=== PATIENT | male | born 1940 | race Caucasian/White ===

== ENCOUNTER 2023-02-10 01:30 | Emergency (ER) | payer MEDICARE, OTHER ==
[~2023-02-10] VITALS: Ht 177.8 cm; Wt 99.8 kg
[2023-02-10 02:15] LABS: BASOPHILS ABSOLUTE AUTO 0.01 K/mm3 (0.00-0.23); BASOPHILS PERCENT AUTO 0 % (0-2); EOSINOPHILS ABSOLUTE AUTO 0.03 K/mm3 (0.00-0.68); EOSINOPHILS PERCENT AUTO 1 % (0-6); Hematocrit 34.7 % (37.0-53.0); Hemoglobin 11.4 g/dL (13.5-17.5); IMMATURE GRAN ABSOLUTE AUTO 0.05 K/mm3 (0.00-0.10); IMMATURE GRAN PERCENT AUTO 1 % (0-1); LYMPHOCYTES PERCENT AUTO 14 % (21-46); MONOCYTES ABSOLUTE AUTO 0.79 K/mm3 (0.16-1.47); MONOCYTES PERCENT AUTO 19 % (4-13); Mean Corpuscular HGB 31.3 pg (26.0-34.0); Mean Corpuscular HGB Conc 32.9 g/dL (31.5-36.5); Mean Corpuscular Volume 95 fL (80-100); NEUTROPHILS ABSOLUTE AUTO 2.79 K/mm3 (1.96-9.15); NEUTROPHILS PERCENT AUTO 65 % (41-73); Platelet Count 114 K/mm3 (150-400); RDW Coefficient Variation 14.6 % (11.7-14.2); RDW Standard Deviation 50.6 fL (35.1-46.3); Red Blood Cell Count 3.64 M/mm3 (4.30-5.90); White Blood Cell Count 4.27 K/mm3 (4.00-11.30)
[2023-02-10 02:35] LABS: Albumin/Globulin Ratio 0.9 (0.8-1.8); Bilirubin, Total 0.4 mg/dL (0.1-1.0); Bun/Creatinine Ratio 23.6 (12.0-20.0); Calcium, Blood 7.8 mg/dL (8.5-10.1); Creatinine, Blood 1.91 mg/dL (0.60-1.20); Globulin, Blood 3.5 g/dL (2.2-4.0); Magnesium, Blood 2.1 mg/dL (1.6-2.4); Total Protein, Blood 6.5 g/dL (6.4-8.2)
[2023-02-10 05:30] VITALS: BP 116/59
[2023-02-15] MEDS ORDERED: TRELEGY ELLIPT1 EACH IH (23:54)
== END 2023-02-10 09:33 | disposition home or self-care (01) ==
LOC: ER 01:30
PROVIDERS: Student in an Organized Health Care Education/Training Program
DX: U07.1 COVID-19 (principal); E86.0 Dehydration; N17.9 Acute kidney failure, unspecified; S08.0XXA Avulsion of scalp, initial encounter; F03.90 Unspecified dementia, unspecified severity, without behavioral disturbance, psychotic disturbance, mood disturbance, and anxiety; I10 Essential (primary) hypertension; J44.9 Chronic obstructive pulmonary disease, unspecified; W18.30XA Fall on same level, unspecified, initial encounter; Y92.10 Unspecified residential institution as the place of occurrence of the external cause
CPT/HCPCS: 70450; 80053; 83735; 85025; 96360; 99285-25; J7030

== ENCOUNTER 2023-02-15 18:19 | Inpatient (IN) | payer MEDICARE, OTHER ==
[~2023-02-15] VITALS: Ht 177.8 cm; Wt 108.5 kg
[2023-02-15 18:43] LABS: BASOPHILS ABSOLUTE AUTO 0.01 K/mm3 (0.00-0.23); BASOPHILS PERCENT AUTO 0 % (0-2); EOSINOPHILS PERCENT AUTO 0 % (0-6); Hematocrit 37.6 % (37.0-53.0); Hemoglobin 12.2 g/dL (13.5-17.5); IMMATURE GRAN ABSOLUTE AUTO 0.08 K/mm3 (0.00-0.10); IMMATURE GRAN PERCENT AUTO 1 % (0-1); LYMPHOCYTES ABSOLUTE AUTO 0.72 K/mm3 (0.84-5.20); LYMPHOCYTES PERCENT AUTO 11 % (21-46); MONOCYTES ABSOLUTE AUTO 0.57 K/mm3 (0.16-1.47); MONOCYTES PERCENT AUTO 8 % (4-13); Mean Corpuscular HGB 30.2 pg (26.0-34.0); Mean Corpuscular HGB Conc 32.4 g/dL (31.5-36.5); Mean Corpuscular Volume 93 fL (80-100); Mean Platelet Volume 11.3 fL (9.1-12.4); NEUTROPHILS ABSOLUTE AUTO 5.46 K/mm3 (1.96-9.15); NEUTROPHILS PERCENT AUTO 80 % (41-73); Platelet Count 119 K/mm3 (150-400); RDW Coefficient Variation 14.8 % (11.7-14.2); RDW Standard Deviation 51.2 fL (35.1-46.3); Red Blood Cell Count 4.04 M/mm3 (4.30-5.90); White Blood Cell Count 6.84 K/mm3 (4.00-11.30)
[2023-02-15 19:01] LABS: Albumin, Blood 3.2 g/dL (3.4-5.0); Albumin/Globulin Ratio 0.7 (0.8-1.8); Bilirubin, Total 0.5 mg/dL (0.1-1.0); Bun/Creatinine Ratio 25.9 (12.0-20.0); Creatinine, Blood 2.51 mg/dL (0.60-1.20); Globulin, Blood 4.4 g/dL (2.2-4.0); Magnesium, Blood 2.4 mg/dL (1.6-2.4); Phosphorus, Blood 2.8 mg/dL (2.5-4.9); Potassium, Blood 5.7 mmol/L (3.5-5.5); Total Protein, Blood 7.6 g/dL (6.4-8.2)
[2023-02-15 19:10] LABS: D-Dimer, Quantitative 1.78 mg/L FEU (0.00-0.52); International Normalized Ratio 0.98; Prothrombin Time Results 10.3 Sec (9.7-11.5)
[2023-02-15] MEDS ORDERED: TAMSULOSIN HCL0.4 M1 PO (23:53)
[2023-02-15] MEDS ORDERED: Prinivil10 MG PO (23:53)
[2023-02-15] MEDS ORDERED: FLUTICASONE PRO16 GM (23:54)
[2023-02-15] MEDS ORDERED: NAPROXEN500 MG PO (23:54)
[2023-02-15] MEDS ORDERED: TRELEGY ELLIPT1 EACH INH (23:54)
--- NOTE | 2023-02-15 23:57 | NUR ---
PT CHART REVIEWED FOR ADMIT
[2023-02-16 00:42] LABS: Source, Urine Clean Catch
[2023-02-16 00:43] VITALS: BP 113/80
[2023-02-16 00:55] LABS: Bilirubin, Urine Neg (Neg); Blood, Urine Neg (Neg); Glucose Qualitative, Urine Neg (Neg); Ketones, Urine Neg (Neg); Leukocyte Esterase, Urine Neg (Neg); Nitrite, Urine Neg (Neg); Protein, Urine 2+ (Neg); Urobilinogen, Urine NORM (Normal)
[2023-02-16 01:03] LABS: Appearance, Urine Clear (Clear); Color, Urine Yellow (P-Yellow)
[2023-02-16 01:04] LABS: Amorphous Light (0-Heavy); Bacteria Not Seen /hpf; Red Blood Cells, Urine Not Seen /hpf (0-2); Squamous Epithelial Cells Not Seen /hpf (Few); White Blood Cells, Urine Not Seen /hpf (0-5)
[2023-02-16 01:21] LABS: BASOPHILS ABSOLUTE AUTO 0.01 K/mm3 (0.00-0.23); BASOPHILS PERCENT AUTO 0 % (0-2); EOSINOPHILS PERCENT AUTO 0 % (0-6); Hematocrit 35.1 % (37.0-53.0); Hemoglobin 11.6 g/dL (13.5-17.5); IMMATURE GRAN ABSOLUTE AUTO 0.08 K/mm3 (0.00-0.10); IMMATURE GRAN PERCENT AUTO 1 % (0-1); LYMPHOCYTES ABSOLUTE AUTO 0.65 K/mm3 (0.84-5.20); LYMPHOCYTES PERCENT AUTO 8 % (21-46); MONOCYTES ABSOLUTE AUTO 0.66 K/mm3 (0.16-1.47); MONOCYTES PERCENT AUTO 8 % (4-13); Mean Corpuscular HGB 30.2 pg (26.0-34.0); Mean Corpuscular Volume 91 fL (80-100); Mean Platelet Volume 11.2 fL (9.1-12.4); NEUTROPHILS ABSOLUTE AUTO 6.64 K/mm3 (1.96-9.15); NEUTROPHILS PERCENT AUTO 83 % (41-73); Platelet Count 116 K/mm3 (150-400); RDW Coefficient Variation 14.8 % (11.7-14.2); RDW Standard Deviation 49.8 fL (35.1-46.3); Red Blood Cell Count 3.84 M/mm3 (4.30-5.90); White Blood Cell Count 8.04 K/mm3 (4.00-11.30)
--- NOTE | 2023-02-16 01:22 | NUR ---
PATIENT IS A NEW ADMIT FROM THE ED. AXOX 2 WITH CONFUSION. HX DEMENTIA. THREE PERSON TRANSFER FROM [facility] TO BED. SOB WITH EXERTION. DENIES CHEST PAIN AND N/V. TEMP 100.5 ON ADMIT AND ED RN BERKLEY AWARE. SKIN TEAR TO LEFT ELBOW AND MEPILEX APPLIED. BLE BROWN COLORATION AND LEATHER/ALLIGATOR APPEARANCE. EXCORIATED BUTTOCK WITH PHOTO TAKEN AND IN CHART AND MEPILEX APPLIED. ORIENTED TO ROOM AND CALL LIGHT SYSTEM. NS INFUSING AT 75 mL/HR. RESTING IN BED. WCTM.
[2023-02-16 01:39] LABS: Albumin, Blood 2.8 g/dL (3.4-5.0); Albumin/Globulin Ratio 0.7 (0.8-1.8); Bilirubin, Total 0.5 mg/dL (0.1-1.0); Bun/Creatinine Ratio 24.4 (12.0-20.0); Calcium, Blood 7.5 mg/dL (8.5-10.1); Creatinine, Blood 2.7 mg/dL (0.60-1.20); Globulin, Blood 3.8 g/dL (2.2-4.0); Potassium, Blood 5.3 mmol/L (3.5-5.5); Total Protein, Blood 6.6 g/dL (6.4-8.2)
--- NOTE | 2023-02-16 04:17 | NUR ---
SHIFT SUMMARY PATIENT HAD NO ACUTE CHANGES. NS INFUSING AT 75 mL/HR. ON 2L O2 NC AND RA BASELINE. TEMP DOWN TO 99.0 FROM 101.5. VSS/AFEBRILE. DENIES CHEST PAIN, SOB, AND N/V. FAMILY MEMBER (RN) FROM [facility] REPORTS NEW PATIENT SHAKING FROM POST COVID-19 LAST FEW DAYS. ABLE TO SLEEP MOST OF THE SHIFT. CALL LIGHT IN REACH. BED IN LOWEST POSITION. WILL CONTINUE TO MONITOR UNTIL DAY SHIFT NURSE ASSUMES CARE.
[2023-02-16 05:02] VITALS: BP 125/64
[2023-02-16 07:58] VITALS: BP 110/58
[2023-02-16 10:36] LABS: Source, Urine Clean Catch
[2023-02-16 10:41] LABS: Bilirubin, Urine Neg (Neg); Blood, Urine 3+ (Neg); Glucose Qualitative, Urine Neg (Neg); Ketones, Urine Neg (Neg); Leukocyte Esterase, Urine Neg (Neg); Nitrite, Urine Neg (Neg); Protein, Urine 2+ (Neg); Specific Gravity, Urine 1.015 (1.003-1.022); Urobilinogen, Urine NORM (Normal)
[2023-02-16 10:49] LABS: Appearance, Urine Hazy (Clear); Bacteria Few /hpf; Color, Urine Yellow (P-Yellow); Squamous Epithelial Cells Rare /hpf (Few); White Blood Cells, Urine Not Seen /hpf (0-5)
[2023-02-16 15:12] VITALS: BP 97/54
[2023-02-16 16:00] LABS: BASOPHILS ABSOLUTE AUTO 0.01 K/mm3 (0.00-0.23); BASOPHILS PERCENT AUTO 0 % (0-2); EOSINOPHILS PERCENT AUTO 0 % (0-6); Hematocrit 31.6 % (37.0-53.0); Hemoglobin 10.5 g/dL (13.5-17.5); IMMATURE GRAN ABSOLUTE AUTO 0.11 K/mm3 (0.00-0.10); IMMATURE GRAN PERCENT AUTO 2 % (0-1); LYMPHOCYTES ABSOLUTE AUTO 0.95 K/mm3 (0.84-5.20); LYMPHOCYTES PERCENT AUTO 13 % (21-46); MONOCYTES ABSOLUTE AUTO 0.47 K/mm3 (0.16-1.47); MONOCYTES PERCENT AUTO 6 % (4-13); Mean Corpuscular HGB 30.6 pg (26.0-34.0); Mean Corpuscular HGB Conc 33.2 g/dL (31.5-36.5); Mean Corpuscular Volume 92 fL (80-100); Mean Platelet Volume 11.3 fL (9.1-12.4); NEUTROPHILS ABSOLUTE AUTO 5.94 K/mm3 (1.96-9.15); NEUTROPHILS PERCENT AUTO 79 % (41-73); Platelet Count 121 K/mm3 (150-400); RDW Coefficient Variation 15.1 % (11.7-14.2); Red Blood Cell Count 3.43 M/mm3 (4.30-5.90); White Blood Cell Count 7.48 K/mm3 (4.00-11.30)
[2023-02-16 16:21] LABS: Magnesium, Blood 2.2 mg/dL (1.6-2.4)
[2023-02-16 16:32] LABS: Albumin, Blood 2.5 g/dL (3.4-5.0); Anion Gap 4 mmol/L (6-16); Blood Urea Nitrogen 72 mg/dL (8-24); Bun/Creatinine Ratio 27.8 (12.0-20.0); CO2, Blood 21 mmol/L (21-32); Calcium, Blood 7.4 mg/dL (8.5-10.1); Chloride, Blood 116 mmol/L (98-108); Creatinine, Blood 2.59 mg/dL (0.60-1.20); Glomerular Filtration Rate 24 (60-); Glucose, Blood 153 mg/dL (70-99); Phosphorus, Blood 2.6 mg/dL (2.5-4.9); Potassium, Blood 4.8 mmol/L (3.5-5.5); Sodium, Blood 141 mmol/L (136-145)
[2023-02-16 16:54] VITALS: BP 119/58
--- NOTE | 2023-02-16 18:06 | NUR ---
SHIFT SUMMARY: PATIENT ALERT AND ORIENTED TO SELF, PLACED AND YEAR, BUT COULD NOT RECALL THE SPICIFIC DATE, DAY AND MONTH. PATIENT OPEN HIS EYES WHEN ASKED TO QUESTIONS OR VERBAL STIMULI. OTHERWISE, PATIENT HAS BEEN LETHARGIC AND SLEPT THE MAJORITY OF THIS SHIFT. LUNGS HAS COARSE AND WHEEZY T/O TO AUSCULTATIONS. ON RA c SPO2 RANGES 90-98%. NON PRODUCTIVE COUGH. PER DAUGHTER TROY PATIENT JUST COME OUT FROM ISOLATION FOR COVID POSITIVE 2 DAYS AGO. ALSO, DAUGHTER TROY REPORTS PATIENT HAS MILD TREMORS THAT STARTED YESTERDAY. AT BIGINNING OF SHIFT PATIENT C/O OF DISCOMFORT TO SUPRAPUBIC AREA, VOID ABOUT 40 MLS OF URINE USES URINAL c ASSISTANCE. BLADDER SCAN WERE PERFORMED AND SHOWED 869 MLS OF URINE IN BLADDER. THIS RN SPOKE TO DR. NUNES REGARDING PATIENT ISSUES. RECEIVED ORDER FROM DR. NUNES TO PLACED LANE. [address] PLACED AND IMMEDIATELY DRAINED 1000 MLS ELLEN COLOR URINE. PATIENT HAS ONLY ONE TOOTH, MECH SOFT DIET AND FEEDER. PRESSURE SORE TO BUTTOCKS MIPELEX DRESSING PLACED, REPOSITIONED AND LEGS ELEVATED ON PILLOWS. RECEIVED BEDBATH AND LINEN CHANGED. RECEIVED OT DOSE OF IV LASIX. PATIENT HAD TEMP OF 100.5-100.9. PIV TO R FOREARM INFUSING ABX. BED ALARM ON FOR SAFETY. CALL LIGHT IN REACH. PATIENT EDUCATED ON NON SMOKING POLICY, RISK OF INJURY, AND IGNITION SOURCES WHEN O2 IN USE. PATIENT DENIES SMOKING AND VERBALIZED UNDERSTANDING.
[2023-02-17 05:04] LABS: BASOPHILS ABSOLUTE AUTO 0.02 K/mm3 (0.00-0.23); BASOPHILS PERCENT AUTO 0 % (0-2); EOSINOPHILS PERCENT AUTO 0 % (0-6); Hematocrit 33.3 % (37.0-53.0); Hemoglobin 10.8 g/dL (13.5-17.5); IMMATURE GRAN ABSOLUTE AUTO 0.13 K/mm3 (0.00-0.10); IMMATURE GRAN PERCENT AUTO 2 % (0-1); LYMPHOCYTES ABSOLUTE AUTO 1.48 K/mm3 (0.84-5.20); LYMPHOCYTES PERCENT AUTO 19 % (21-46); MONOCYTES ABSOLUTE AUTO 0.49 K/mm3 (0.16-1.47); MONOCYTES PERCENT AUTO 6 % (4-13); Mean Corpuscular HGB 30.4 pg (26.0-34.0); Mean Corpuscular HGB Conc 32.4 g/dL (31.5-36.5); Mean Corpuscular Volume 94 fL (80-100); Mean Platelet Volume 11.4 fL (9.1-12.4); NEUTROPHILS ABSOLUTE AUTO 5.88 K/mm3 (1.96-9.15); NEUTROPHILS PERCENT AUTO 74 % (41-73); Platelet Count 123 K/mm3 (150-400); RDW Coefficient Variation 15.2 % (11.7-14.2); RDW Standard Deviation 52.5 fL (35.1-46.3); Red Blood Cell Count 3.55 M/mm3 (4.30-5.90)
--- NOTE | 2023-02-17 05:24 | NUR ---
SUMMARY- PT AAOX2 THIS SHIFT TO SELF AND PLACE. PT SLEPT THE MAJORITY OF THE SHIFT AND WAS QUITE LETHARGIC ALTHOUGH WOULD WAKE WHEN SPOKEN TO. RT ATTEMPTED A CPAP LAST NIGHT FOR SLEEP, BUT PT COULD NOT REMOVE THE CPAP IN CASE OF AN EMERGENCY, SO CPAP WAS REMOVED. RT PLACED PT ON NC. PT WAS SLEEPING WITH MOUTH OPEN MOST OF THE NIGHT AND OXYGEN SATURATION WAS DROPPING TO THE MID 80'S, SO RT INCREASED OXYGEN TO 6 L NC TO MAINTAIN O2 SATS. ALLEVYN DRESSING CHANGED ON PT'S COCCYX THIS SHIFT. PT IS A X2 PERSON BRIEF CHANGE AND A Q [address] CATHETER IN PLACE AND PATENT.
[2023-02-17 05:44] LABS: Albumin, Blood 2.4 g/dL (3.4-5.0); Anion Gap 6 mmol/L (6-16); Blood Urea Nitrogen 65 mg/dL (8-24); Bun/Creatinine Ratio 26.9 (12.0-20.0); CO2, Blood 21 mmol/L (21-32); Calcium, Blood 7.6 mg/dL (8.5-10.1); Chloride, Blood 118 mmol/L (98-108); Creatinine, Blood 2.42 mg/dL (0.60-1.20); Glomerular Filtration Rate 26 (60-); Glucose, Blood 105 mg/dL (70-99); Magnesium, Blood 2.1 mg/dL (1.6-2.4); Phosphorus, Blood 3.5 mg/dL (2.5-4.9); Potassium, Blood 4.8 mmol/L (3.5-5.5); Sodium, Blood 145 mmol/L (136-145)
[2023-02-17 05:47] VITALS: BP 106/68
[2023-02-17 07:57] VITALS: BP 119/59
[2023-02-17 11:15] VITALS: BP 138/109
[2023-02-17 15:26] VITALS: BP 118/57
--- NOTE | 2023-02-17 16:47 | NUR ---
SHIFT SUMMARY: PATIENT IS AWAKE, ALERT AND ORIENTED TO SELF, PLACE AND YEAR. DENIES CP/PRESSURE, N/V, SOB AND GENERALIZED PAIN. AT BEGINNING OF SHIFT PATIENT WAS ON 6L OF O2 VIA NC c SPO2 OF 100%. OXYGENATION WAS TITRATED DOWN AND MONITORED PATIENT OXYGENATION WAS IN THE HIGH 90'S. PATIENT WAS PLACED ON RA AT AROUND 1130 c SPO2 96-98%. LUNGS STILL COARSE T/O TO AUSCULTATION. PATIENT WORK c PT MOBILITY TODAY AND TRANSFERRED TO CHAIR. PT RECOMMENDED TO [facility]. PATIENT TOLERATED SITTING UP IN THE RECLINER CHAIR FOR ABOUT 5 HRS. PATIENT REQUIRED 2 ASSIST c FWW AND GAITBELT TO BACK IN BED. VISIBLE TREMORS TO BUE'S, EATING AND DRINKING WELL WITHOUT ANY ASSISTANCE. EDEMA TO BLE'S AND FEET. RECEIVED OT DOSE OF [address] PATENT DRAINING YELLOW URINE TO GRAVITY c 1000 MLS TOTAL URINE OUTPUT THIS SHIFT. RECEIVED SCHEDULED MEDS PER EMAR. REPOSITIONED. MIPELEX DRESSING CHANGED TO COCCYX. VITAL SIGNS REVIEWED. BED ALARM ON FOR SAFETY. PIV TO R FOREARM SALINE LOCKED. CALL LIGHT IN REACH. PATIENT EDUCATED ON NON SMOKING POLICY, RISK OF INJURY, AND IGNITION SOURCES WHEN O2 IN USE. PATIENT DENIES SMOKING AND VERBALIZED UNDERSTANDING.
[2023-02-17 20:24] VITALS: BP 120/64
[2023-02-18] VITALS (7 sets, daily range): BP systolic 93–130; BP diastolic 46–65
--- NOTE | 2023-02-18 05:36 | NUR ---
SUMMARY- NO ACUTE EVENTS THIS SHIFT. PT IS MORE AWAKE COMPARED TO YESTERDAY.PT AAOX2 TO SELF AND PLACE, BUT DID KNOW THE YEAR. PT IS A Q2 TURN X2 PERSON ASSIST IN BED. NO COMPLAINTS OF PAIN.
--- NOTE | 2023-02-18 11:02 | NUR ---
PATIENT HAS OT DOSE OF PO 20 MG LASIX TO BE GIVEN D/T EDEMA TO BLE'S. THIS RN CHECK PATIENT VITALS; BP 94/49 c THE MAP OF 62, HR [address] NUNES TO REPORTS THIS ISSUE. RECEIVED ORDER FROM DR. NUNES TO HOLD LASIX.
--- NOTE | 2023-02-18 16:56 | NUR ---
SHIFT SUMMARY: PATIENT IS AWAKE, ALERT AND ORIENTED TO SELF, PLACE AND YEAR. DENIES CP/PRESSURE, SOB, N/V AND GENERALIZED PAIN. LUNGS STILL COARSE AND WHEEZY T/O TO AUSCULTAION. RA c SPO2 RANGES 92-95%. BP SOFT BUT STABLE, DR. NUNES IS AWARE OF THIS ISSUES. EDEMA TO BLE'S-ELEVATED ON PILLOWS, MIPELEX DRESSING CHANGED TO BUTTOCKS. LANE PATENT DRAINING YELLOW URINE TO GRAVITY c 500 MLS TOTAL URINE OUTPUT THIS SHIFT. PATIENT WAS OOB TODAY c 2 MAX ASSIST, FWW AND GAITBELT STAND AND PIVOT TO RECLINER CHAIR AND STAYED IN THE CHAIR FOR ABOUT 5 HOURS, TOLERATED WELL. RECEIVED SCHEDULED MEDS PER EMAR. BED ALARM ON FOR SAFETY. CALL LIGHT IN REACH. PATIENT EDUCATED ON NON SMOKING POLICY, RISK OF INJURY AND IGNITION SOURCES WHEN O2 IN USE. PATIENT DENIES SMOKING AND VERBALIZED UNDERSTANDING.
[2023-02-19 05:06] VITALS: BP 116/61
--- NOTE | 2023-02-19 05:39 | NUR ---
SUMMARY: PT A/O TO SELF, SURROUNDINGS AND YEAR BUT CONFUSED TO DATE AND SITUATION SPECIFICS. HE HAS DEMENTIA AND LIVES AT [facility] BUT IS ABLE TO SPECIFY NEEDS AND COOPERATE W/CARE. PT IS W/C BOUND AND ABLE TO WT.BEAR FOR TRANSFERS AT BASELINE BUT REQ'S 2P MAX ASSIST W/FWW AND GB NOW D/T INCREASED WEAKNESS. TURN SCHEDULE MAINTAINED FOR HEALING DECUB ULCER TO BUTTOCKS, MEPILEX IS C/D/I. LEGS REMAIN DISCOLORED, SCALEY AND DRY W/3+ EDEMA AND HEELS FLOATED ON PILLOWS FOR SBD PREVENTION. MEPILEX TO L.ELBOW SKIN TEAR IS C/D/I. LANE FOR RETENTION REMAINS PATENT/DRAINING TO GRAVITY. NO ACUTE CHANGES, VSS/AFEBRILE. POSSIBLE D/C TODAY. WCTM AND REPORT TO DAY RN.
[2023-02-19] MEDS ORDERED: DOCU100 PO (05:50)
[2023-02-19] MEDS ORDERED: MIRALAX17 GM PO (05:51)
[2023-02-19] MEDS ORDERED: MUPIROCIN1 G1 TOP (05:52)
[2023-02-19] MEDS ORDERED: DOCCAL240 PO (05:52)
[2023-02-19] MEDS ORDERED: Ventolin/Prove6.7 GM INH (05:56)
[2023-02-19 07:33] VITALS: BP 107/50
[2023-02-19 10:10] LABS: BASOPHILS ABSOLUTE AUTO 0.02 K/mm3 (0.00-0.23); BASOPHILS PERCENT AUTO 0 % (0-2); EOSINOPHILS ABSOLUTE AUTO 0.01 K/mm3 (0.00-0.68); EOSINOPHILS PERCENT AUTO 0 % (0-6); Hematocrit 34.2 % (37.0-53.0); Hemoglobin 11.2 g/dL (13.5-17.5); IMMATURE GRAN ABSOLUTE AUTO 0.29 K/mm3 (0.00-0.10); IMMATURE GRAN PERCENT AUTO 4 % (0-1); LYMPHOCYTES ABSOLUTE AUTO 1.17 K/mm3 (0.84-5.20); LYMPHOCYTES PERCENT AUTO 16 % (21-46); MONOCYTES ABSOLUTE AUTO 0.51 K/mm3 (0.16-1.47); MONOCYTES PERCENT AUTO 7 % (4-13); Mean Corpuscular HGB 30.1 pg (26.0-34.0); Mean Corpuscular HGB Conc 32.7 g/dL (31.5-36.5); Mean Corpuscular Volume 92 fL (80-100); NEUTROPHILS ABSOLUTE AUTO 5.57 K/mm3 (1.96-9.15); NEUTROPHILS PERCENT AUTO 74 % (41-73); Platelet Count 185 K/mm3 (150-400); RDW Coefficient Variation 15.2 % (11.7-14.2); RDW Standard Deviation 50.4 fL (35.1-46.3); Red Blood Cell Count 3.72 M/mm3 (4.30-5.90); White Blood Cell Count 7.57 K/mm3 (4.00-11.30)
[2023-02-19 10:40] LABS: Albumin, Blood 2.3 g/dL (3.4-5.0); Albumin/Globulin Ratio 0.5 (0.8-1.8); Bilirubin, Total 0.4 mg/dL (0.1-1.0); Bun/Creatinine Ratio 29.7 (12.0-20.0); Calcium, Blood 7.9 mg/dL (8.5-10.1); Creatinine, Blood 1.72 mg/dL (0.60-1.20); Globulin, Blood 4.4 g/dL (2.2-4.0); Potassium, Blood 4.7 mmol/L (3.5-5.5); Total Protein, Blood 6.7 g/dL (6.4-8.2)
[2023-02-19 17:15] VITALS: BP 110/56
--- NOTE | 2023-02-19 18:11 | NUR ---
SHIFT SUMMARY PT A&OX3 AND PLEASANT. PHYSICAL THERAPY AND OT WORKED WITH PT TODAY. PT TO BEDSIDE CHAIR FOR APPROXAMINTALY AN HOUR IN THE MORNING AND BACK UP TO CHAIR MOST OF THE AFTERNOON. PT VERBALIZED PREFERING TO BE UP IN CHAIR. PILLOWS PLACED UNDER BOTTOM AND REPOSITIONED OFTEN. MEPALEX ON BOTTOM AND ELBOW CHANGED TODAY. CONTINIOUS BIOX IS POSITIONED ON PT'S EAR. SMALL PRESSURE ULCER NOTED ON PT'S LEFT EAR LOBE. CLAMP HAS BEEN MOVED FROM EAR TO EAR AND IN DIFFERENT POSITIONS ON EAR T/O DAY. PT UP TO [facility] [place] AND IS A HEAVY 2 ASSIST. PT ON RA AND VSS. CONTINUING ABX TREATMENT. NO C/O PAIN. BED IN LOWEST POSITION AND CALL LIGHT IN REACH.
[2023-02-19 19:54] VITALS: BP 78/49
[2023-02-19 20:59] VITALS: BP 110/78
[2023-02-20 05:38] VITALS: BP 130/61
[2023-02-20 05:53] LABS: Hematocrit 31.1 % (37.0-53.0); Hemoglobin 10.2 g/dL (13.5-17.5); Mean Corpuscular HGB 30.1 pg (26.0-34.0); Mean Corpuscular HGB Conc 32.8 g/dL (31.5-36.5); Mean Corpuscular Volume 92 fL (80-100); Mean Platelet Volume 10.9 fL (9.1-12.4); Platelet Count 173 K/mm3 (150-400); RDW Standard Deviation 50.3 fL (35.1-46.3); Red Blood Cell Count 3.39 M/mm3 (4.30-5.90); White Blood Cell Count 5.84 K/mm3 (4.00-11.30)
[2023-02-20 06:15] LABS: BAND PERCENT MAN 9 % (0-8); BASOPHILS PERCENT MAN 0 % (0-2); EOSINOPHILS PERCENT MAN 0 % (0-6); LYMPHOCYTES % ATYPICAL MANUAL 2 % (0-0); LYMPHOCYTES ABSOLUTE MAN 1.05 K/mm3 (0.84-5.20); LYMPHOCYTES PERCENT MAN 16 % (21-46); METAMYELOCYTE ABSOLUTE MAN 0.05 K/mm3 (0.00-0.00); METAMYELOCYTE PERCENT MAN 1 % (0-0); MONOCYTES ABSOLUTE MAN 0.29 K/mm3 (0.16-1.47); MONOCYTES PERCENT MAN 5 % (4-13); NEUTROPHILS ABSOLUTE MAN 4.43 K/mm3 (1.96-9.15); SEG NEUTROPHILS PERCENT MAN 67 % (41-73); TOTAL CELLS COUNTED 100
--- NOTE | 2023-02-20 06:21 | NUR ---
SUMMARY: PT HAS HX DEMENTIA BUT IS A/O TO SELF, SURROUNDINGS AND YEAR AND IS ABLE TO SPECIFY NEEDS. HE LIVES AT [facility] AND IS W/C BOUND BUT REMAINS WEAK FROM BASELINE. HE'S ABLE TO PIVOT T/F TO RECLINER AND BSC BUT 2P MAX ASSIST W/FWW AND GB REQUIRED. TURN SCHEDULE MAINTAINED IN BED FOR HEALING DECUB ULCERS TO BUTTOCKS. CREAM APPLIED AND MEPILEX REPLACED MULTIPLE TIMES D/T BECOMING SOILED W/STOOL. LEGS REMAIN DISCOLORED, SCALEY AND DRY W/3+ EDEMA AND HEELS ARE FLOATED ON PILLOWS. MEPILEX TO L.ELBOW SKIN TEAR REMAINS C/D/I. LANE IS PATENT/DRAINING FOR RETENTION. NO ACUTE CHANGES, VSS/AFEBRILE. EAR PROBE LOCATION CHANGED FREQ D/T DEVELOPMENT OF SORE TO L.EARLOBE. POSSIBLE D/C TODAY. WCTM AND REPORT TO DAY RN.
[2023-02-20 06:28] LABS: Bun/Creatinine Ratio 31.8 (12.0-20.0); Calcium, Blood 7.8 mg/dL (8.5-10.1); Creatinine, Blood 1.7 mg/dL (0.60-1.20); Potassium, Blood 4.6 mmol/L (3.5-5.5)
[2023-02-20 07:58] VITALS: BP 102/86
[2023-02-20 17:32] VITALS: BP 131/72
--- NOTE | 2023-02-20 19:29 | NUR ---
PT A&OX3 AND PLEASANT. PT SOMNOLENT IN MORNING AND DID NOT WANT TO GET OOB FOR BREAKFAST. PT DESATING DOWN TO 85% WHILE SLEEPING SO PT PLACED ON 2L OF OXYGEN. PHYSICAL THERAPY WORKED WITH PT AND INCREASED OXYGEN TO 3L D/T O2 DROPPING. PT UP TO CHAIR IN AFTERNOON. PT APPEARS MORE WEAK TODAY. MEPALEX ON BOTTOM CHANGED AND CREAM APPLIED. CONTINUING ABX. VSS. PLAN IS TO DC TO SNIF. BED IN LOWEST POSITION AND CALL LIGHT IN REACH.
[2023-02-20 19:45] VITALS: BP 134/71
[2023-02-21 04:31] VITALS: BP 146/75
[2023-02-21 05:05] LABS: Hematocrit 29.9 % (37.0-53.0); Hemoglobin 10.2 g/dL (13.5-17.5); Mean Corpuscular HGB 32.2 pg (26.0-34.0); Mean Corpuscular HGB Conc 34.1 g/dL (31.5-36.5); Mean Corpuscular Volume 94 fL (80-100); Mean Platelet Volume 10.8 fL (9.1-12.4); Platelet Count 188 K/mm3 (150-400); RDW Standard Deviation 50.4 fL (35.1-46.3); Red Blood Cell Count 3.17 M/mm3 (4.30-5.90); White Blood Cell Count 6.05 K/mm3 (4.00-11.30)
--- NOTE | 2023-02-21 05:42 | NUR ---
SHIFT SUMMARY PT SLEPT VERY SPORADICALLY THROUGHOUT NIGHT. ORIENTED TO SELF ONLY AT THIS TIME, OCCASIONALLY ORIENTED TO HOSPITAL. NO C/O PAIN. REMAINS ON 3L, PT ONLY DESATS WHEN HE REMOVES HIS O2, HE WILL DROP TO AROUND 85-86%. LANE TO GRAVITY DRAINING YELLOW URINE. Q1H FIRE SAFETY CHECKS COMPLETED, NO IGNITION SOURCES FOUND.
[2023-02-21 05:54] LABS: BAND PERCENT MAN 3 % (0-8); BASOPHILS PERCENT MAN 0 % (0-2); EOSINOPHILS ABSOLUTE MAN 0.06 K/mm3 (0.00-0.68); EOSINOPHILS PERCENT MAN 1 % (0-6); LYMPHOCYTES % ATYPICAL MANUAL 3 % (0-0); LYMPHOCYTES ABSOLUTE MAN 1.21 K/mm3 (0.84-5.20); LYMPHOCYTES PERCENT MAN 17 % (21-46); METAMYELOCYTE ABSOLUTE MAN 0.24 K/mm3 (0.00-0.00); METAMYELOCYTE PERCENT MAN 4 % (0-0); MONOCYTES ABSOLUTE MAN 0.24 K/mm3 (0.16-1.47); MONOCYTES PERCENT MAN 4 % (4-13); NEUTROPHILS ABSOLUTE MAN 4.29 K/mm3 (1.96-9.15); SEG NEUTROPHILS PERCENT MAN 68 % (41-73); TOTAL CELLS COUNTED 100
[2023-02-21 06:05] LABS: Bun/Creatinine Ratio 32.4 (12.0-20.0); Creatinine, Blood 1.36 mg/dL (0.60-1.20); Potassium, Blood 4.6 mmol/L (3.5-5.5)
[2023-02-21 07:51] VITALS: BP 132/68
[2023-02-21] MEDS ORDERED: AMOCLA875 PO (14:34)
[2023-02-21] MEDS ORDERED: SPIRIVA RESPIMAT4 G3 INH (14:35)
[2023-02-21 15:36] VITALS: BP 110/87
--- NOTE | 2023-02-21 18:17 | NUR ---
REPORT CALLED TO ESME AT [facility]. [facility] W/C TRANSPORTATION HERE TO PICKK PT UP. TRANSFERRED TO W/C VIA SIT TO STAND LIFT. TO CURB WITH BELONGINGS
== END 2023-02-21 17:19 | DRG 682 ==
LOC: ER 18:19 → MEDS 18:20
PROVIDERS: Emergency Medicine; Family Medicine; Internal Medicine; ADMIT Internal Medicine
DX: N17.9 Acute kidney failure, unspecified (principal); J18.9 Pneumonia, unspecified organism; I13.0 Hypertensive heart and chronic kidney disease with heart failure and stage 1 through stage 4 chronic kidney disease, or unspecified chronic kidney disease; I50.32 Chronic diastolic (congestive) heart failure; J44.0 Chronic obstructive pulmonary disease with (acute) lower respiratory infection; R65.10 Systemic inflammatory response syndrome (SIRS) of non-infectious origin without acute organ dysfunction; W18.30XA Fall on same level, unspecified, initial encounter; F03.90 Unspecified dementia, unspecified severity, without behavioral disturbance, psychotic disturbance, mood disturbance, and anxiety; E66.9 Obesity, unspecified; E86.0 Dehydration; N18.32 Chronic kidney disease, stage 3b; Z87.891 Personal history of nicotine dependence; Z68.34 Body mass index [BMI] 34.0-34.9, adult; Z79.811 Long term (current) use of aromatase inhibitors; Z79.51 Long term (current) use of inhaled steroids; Z79.899 Other long term (current) drug therapy
CPT/HCPCS: 36415; 51702; 71045; 71260; 80048; 80053; 80069; 81001; 83605; 83735; 83880; 84100; 84145; 84484; 85025; 85379; 85610; 85730; 87040; 87086; 94640; 94660; 94664; 94760; 94762; 97110; 97116; 97162; 97165; 97530; 99285-25; A9270; G0378; J0456; J0696; J1644; J1940; J7030; J7050; P9612; Q9967

== ENCOUNTER → 2023-03-21 | Outpatient (CLI) | payer MEDICARE, OTHER ==
[~2023-03-21] MED LIST: AMOCLA875 PO; DOCCAL240 PO; DOCU100 PO; FLUTICASONE PRO16 GM; MIRALAX17 GM PO; MUPIROCIN1 G1 TOP; NAPROXEN500 MG PO; Prinivil10 MG PO; SPIRIVA RESPIMAT4 G3 INH; TAMSULOSIN HCL0.4 M1 PO; TRELEGY ELLIPT1 EACH INH; Ventolin/Prove6.7 GM INH
[2023-03-21 13:59] LABS: BASOPHILS ABSOLUTE AUTO 0.04 K/mm3 (0.00-0.23); BASOPHILS PERCENT AUTO 1 % (0-2); EOSINOPHILS ABSOLUTE AUTO 0.25 K/mm3 (0.00-0.68); EOSINOPHILS PERCENT AUTO 3 % (0-6); Hematocrit 34.2 % (37.0-53.0); Hemoglobin 11.1 g/dL (13.5-17.5); IMMATURE GRAN PERCENT AUTO 1 % (0-1); LYMPHOCYTES ABSOLUTE AUTO 1.94 K/mm3 (0.84-5.20); LYMPHOCYTES PERCENT AUTO 26 % (21-46); MONOCYTES ABSOLUTE AUTO 0.69 K/mm3 (0.16-1.47); MONOCYTES PERCENT AUTO 9 % (4-13); Mean Corpuscular HGB 30.2 pg (26.0-34.0); Mean Corpuscular HGB Conc 32.5 g/dL (31.5-36.5); Mean Corpuscular Volume 93 fL (80-100); NEUTROPHILS ABSOLUTE AUTO 4.59 K/mm3 (1.96-9.15); NEUTROPHILS PERCENT AUTO 60 % (41-73); Platelet Count 182 K/mm3 (150-400); RDW Coefficient Variation 16.1 % (11.7-14.2); RDW Standard Deviation 54.2 fL (35.1-46.3); Red Blood Cell Count 3.67 M/mm3 (4.30-5.90); White Blood Cell Count 7.61 K/mm3 (4.00-11.30)
[2023-03-21 14:09] LABS: Albumin, Blood 3.1 g/dL (3.4-5.0); Albumin/Globulin Ratio 0.7 (0.8-1.8); Bilirubin, Total 0.5 mg/dL (0.1-1.0); Bun/Creatinine Ratio 21.6 (12.0-20.0); Calcium, Blood 8.7 mg/dL (8.5-10.1); Creatinine, Blood 1.67 mg/dL (0.60-1.20); Globulin, Blood 4.7 g/dL (2.2-4.0); Potassium, Blood 4.6 mmol/L (3.5-5.5); Total Protein, Blood 7.8 g/dL (6.4-8.2)
== END | disposition home or self-care (01) ==
LOC: LAB 13:53 → LAB SHORT 13:53
PROVIDERS: Physician Assistant Surgical
DX: R22.30 Localized swelling, mass and lump, unspecified upper limb (principal)
CPT/HCPCS: 80053; 83880; 85025

== ENCOUNTER → 2023-05-18 | Outpatient (CLI) | payer MEDICARE, OTHER | LOC: LAB 14:24 → LAB SHORT 14:24 | DX: R21 Rash and other nonspecific skin eruption (principal) | CPT/HCPCS: 88312 ==

== ENCOUNTER → 2023-12-25 | Outpatient (CLI) | payer MEDICARE, OTHER ==
[2023-12-25 13:58] LABS: Source, Urine Clean Catch
[2023-12-25 19:05] LABS: Appearance, Urine Clear (Clear); Bilirubin, Urine Neg (Neg); Blood, Urine Neg (Neg); Color, Urine Yellow (P-Yellow); Glucose Qualitative, Urine Neg (Neg); Ketones, Urine Neg (Neg); Leukocyte Esterase, Urine 1+ (Neg); Nitrite, Urine Neg (Neg); Protein, Urine Neg (Neg); Specific Gravity, Urine 1.015 (1.003-1.022); Urobilinogen, Urine NORM (Normal)
[2023-12-25 19:15] LABS: Bacteria Not Seen /hpf; Red Blood Cells, Urine Not Seen /hpf (0-2); Squamous Epithelial Cells Rare /hpf (Few); White Blood Cells, Urine 0-2 /hpf (0-5)
== END | disposition home or self-care (01) ==
LOC: LAB 13:00 → LAB SHORT 13:00
PROVIDERS: Nurse Practitioner Family
DX: N39.0 Urinary tract infection, site not specified (principal)
CPT/HCPCS: 81015; 87086

== ENCOUNTER → 2024-03-04 | Outpatient (CLI) | payer MEDICARE, OTHER | LOC: LAB 15:30 → LAB SHORT 15:30 | DX: D48.5 Neoplasm of uncertain behavior of skin (principal) | CPT/HCPCS: 87070; 87077; 87186; 87205 ==

== ENCOUNTER 2025-06-18 02:49 | Observation (INO) | payer MEDICARE, OTHER ==
[~2025-06-18] VITALS: Ht 175.3 cm; Wt 95.2 kg
[2025-06-18 03:17] LABS: BASOPHILS ABSOLUTE AUTO 0.05 K/mm3 (0.00-0.23); BASOPHILS PERCENT AUTO 0 % (0-2); EOSINOPHILS ABSOLUTE AUTO 0.02 K/mm3 (0.00-0.68); EOSINOPHILS PERCENT AUTO 0 % (0-6); Hematocrit 33.2 % (37.0-53.0); Hemoglobin 11.1 g/dL (13.5-17.5); IMMATURE GRAN ABSOLUTE AUTO 0.19 K/mm3 (0.00-0.10); IMMATURE GRAN PERCENT AUTO 1 % (0-1); LYMPHOCYTES ABSOLUTE AUTO 0.74 K/mm3 (0.84-5.20); LYMPHOCYTES PERCENT AUTO 4 % (21-46); MONOCYTES ABSOLUTE AUTO 1.15 K/mm3 (0.16-1.47); MONOCYTES PERCENT AUTO 6 % (4-13); Mean Corpuscular HGB Conc 33.4 g/dL (31.5-36.5); Mean Corpuscular Volume 98 fL (80-100); NEUTROPHILS ABSOLUTE AUTO 17.31 K/mm3 (1.96-9.15); NEUTROPHILS PERCENT AUTO 89 % (41-73); NRBC ABSOLUTE 0.00 K/mm3 (0.00-0.02); NRBC Auto 0.0 /100 WBC (0.0-0.2); Platelet Count 141 K/mm3 (150-400); RDW Coefficient Variation 14.5 % (11.7-14.2); RDW Standard Deviation 51.2 fL (35.1-46.3)
[2025-06-18 03:28] LABS: Alanine Aminotransfer (ALT/SGP 27.0 U/L (12-78); Albumin, Blood 3.0 g/dL (3.4-5.0); Albumin/Globulin Ratio 0.8 (0.8-1.8); Anion Gap 10.0 mmol/L (3-11); Aspartate Aminotrans (AST/SGOT 21.0 U/L (12-37); Bilirubin, Total 1.3 mg/dL (0.1-1.0); Blood Urea Nitrogen 51.0 mg/dL (8-24); CO2, Blood 21.0 mmol/L (21-32); Calcium, Blood 8.2 mg/dL (8.5-10.1); Chloride, Blood 109.0 mmol/L (98-108); Creatinine, Blood 1.92 mg/dL (0.60-1.20); Globulin, Blood 3.8 g/dL (2.2-4.0); Glucose, Blood 149.0 mg/dL (70-99); Magnesium, Blood 2.2 mg/dL (1.6-2.4); Potassium, Blood 4.7 mmol/L (3.5-5.5); Sodium, Blood 135.0 mmol/L (136-145); Total Protein, Blood 6.8 g/dL (6.4-8.2)
[2025-06-18] MEDS ORDERED: CefTRIAXone Sodium 1,000 MG in NS 100 ML IV ONE (03:35)
[2025-06-18] MEDS ORDERED: Ipratropium/Albuterol SulF 2.5-0.5MG/3 ML Amp INH SCH (05:25)
[2025-06-18] MEDS ORDERED: FURO20 PO (05:28)
[2025-06-18] MEDS ORDERED: LEVOCETIRIZINE D5 MG PO (05:28)
[2025-06-18] MEDS ORDERED: POTA10T PO (05:29)
[2025-06-18] MEDS ORDERED: FLU VACC TS2025(65UP)/MF59C/PF 45 MCG/0.5 ML SYRINGE IM SCH (05:35)
--- NOTE | 2025-06-18 06:17 | NUR ---
ER ADMIT ARRIVED VIA GURNEY. A/OX3, PT ON RA AT THIS TIME WITH SATS GREATER THAN 90. EXP WHEEZES NOTED. PT WITH REDNESS TO GROIN AND SKIN TEAR TO L CALF. ATTEMPTING TO USE URINAL. VSS AT THIS TIME. WILL REPORT TO DAYSHIFT RN.
[2025-06-18 06:23] VITALS: BP 103/55
[2025-06-18 08:31] VITALS: BP 130/98
[2025-06-18] MEDS ORDERED: Enoxaparin 40 MG/0.4 ML SYR SC SCH (09:00)
[2025-06-18] MEDS ORDERED: Lactobacil 2-S.Thermo-Bifido 1 1 Cap PO SCH (09:00)
[2025-06-18 12:44] LABS: Source, Urine Clean Catch
[2025-06-18 13:02] LABS: Bilirubin, Urine Neg (Neg); Color, Urine Yellow (P-Yellow); Glucose Qualitative, Urine Neg (Neg); Ketones, Urine Neg (Neg); Leukocyte Esterase, Urine Neg (Neg); Protein, Urine 1+ (Neg); Specific Gravity, Urine 1.020 (1.003-1.022); Urobilinogen, Urine NORM (Normal)
[2025-06-18 15:55] VITALS: BP 116/54
--- NOTE | 2025-06-18 16:45 | NUR ---
PT AOX2-3 AND COOPERATIVE OF CARE. PT HAS BEEN DOING WELL ON RA. PT ABLE TO ANSWER SIMPLE QUESTIONS. NO ACUTE CHANGES. CALL LIGHT IS IN REACH WILL CONTINUE TO MONITOR BED ALARM IN PLACE.
[2025-06-18 19:20] VITALS: BP 90/43
[2025-06-18 19:30] VITALS: BP 100/50
[2025-06-19] MEDS ORDERED: Ipratropium/Albuterol SulF 2.5-0.5MG/3 ML Amp INH SCH (01:25)
[2025-06-19] MEDS ORDERED: Formoterol/Mometasone MDI 5/100 mcg 13 GM INH SCH (02:15)
[2025-06-19] MEDS ORDERED: Ipratropium Bromide INH 0.02% 0.5 mg/2.5ML Vial INH SCH (02:20)
[2025-06-19 04:50] LABS: Influenza A, PCR NEGATIVE (NEGATIVE); Influenza B, PCR NEGATIVE (NEGATIVE); Resp Syncytial Virus, PCR NEGATIVE (NEGATIVE); SARS-Cov-2 (COVID-19) PCR, MMC NEGATIVE (NEGATIVE)
[2025-06-19 05:38] VITALS: BP 150/70
--- NOTE | 2025-06-19 05:56 | NUR ---
SHIFT SUMMARY PT A&Ox3. USES CALL LIGHT BUT ALSO, OCCASIONALLY CALLS OUT TO PRINGLE. PT ABLE TO VOID USING URINAL. BLADDER SCANNED TWICE DURING THE NIGHT AND PT WAS LESS THAN 200ml SO NO NEED TO STRAIGHT CATH. NO C/O PAIN. UPDATE GIVEN TO [facility] REGARDING PT. VSS BUT BP SOFT. BED ALARM ON. BED IN LOWEST POSITION AND CALL LIGHT IN REACH.
[2025-06-19] MEDS ORDERED: NS 250 ML IV PRN (07:25)
[2025-06-19 07:59] VITALS: BP 118/59
[2025-06-19] MEDS ORDERED: Polyethylene Glycol 3350 17 gm PO SCH (09:00)
[2025-06-19] MEDS ORDERED: CefTRIAXone Sodium 1,000 MG in NS 100 ML IV SCH (09:00)
[2025-06-19] MEDS ORDERED: Fluticasone 0.05% Nasal Spray SCH (09:00)
[2025-06-19 11:17] LABS: BASOPHILS ABSOLUTE AUTO 0.04 K/mm3 (0.00-0.23); BASOPHILS PERCENT AUTO 0 % (0-2); EOSINOPHILS ABSOLUTE AUTO 0.08 K/mm3 (0.00-0.68); EOSINOPHILS PERCENT AUTO 1 % (0-6); Hematocrit 32.2 % (37.0-53.0); Hemoglobin 10.9 g/dL (13.5-17.5); IMMATURE GRAN ABSOLUTE AUTO 0.11 K/mm3 (0.00-0.10); IMMATURE GRAN PERCENT AUTO 1 % (0-1); LYMPHOCYTES ABSOLUTE AUTO 1.22 K/mm3 (0.84-5.20); LYMPHOCYTES PERCENT AUTO 10 % (21-46); MONOCYTES ABSOLUTE AUTO 0.93 K/mm3 (0.16-1.47); MONOCYTES PERCENT AUTO 8 % (4-13); Mean Corpuscular HGB Conc 33.9 g/dL (31.5-36.5); Mean Corpuscular Volume 98 fL (80-100); NEUTROPHILS ABSOLUTE AUTO 9.36 K/mm3 (1.96-9.15); NEUTROPHILS PERCENT AUTO 80 % (41-73); NRBC ABSOLUTE 0.00 K/mm3 (0.00-0.02); NRBC Auto 0.0 /100 WBC (0.0-0.2); Platelet Count 134 K/mm3 (150-400); RDW Coefficient Variation 14.6 % (11.7-14.2); RDW Standard Deviation 52.1 fL (35.1-46.3)
[2025-06-19 11:38] LABS: Alanine Aminotransfer (ALT/SGP 21.0 U/L (12-78); Albumin, Blood 3.2 g/dL (3.4-5.0); Albumin/Globulin Ratio 0.8 (0.8-1.8); Anion Gap 7.0 mmol/L (3-11); Aspartate Aminotrans (AST/SGOT 14.0 U/L (12-37); Bilirubin, Total 0.9 mg/dL (0.1-1.0); Blood Urea Nitrogen 47.0 mg/dL (8-24); CO2, Blood 26.0 mmol/L (21-32); Calcium, Blood 8.6 mg/dL (8.5-10.1); Chloride, Blood 109.0 mmol/L (98-108); Creatinine, Blood 1.63 mg/dL (0.60-1.20); Globulin, Blood 3.8 g/dL (2.2-4.0); Glucose, Blood 127.0 mg/dL (70-99); Potassium, Blood 4.2 mmol/L (3.5-5.5); Sodium, Blood 138.0 mmol/L (136-145); Total Protein, Blood 7.0 g/dL (6.4-8.2)
[2025-06-19 15:39] VITALS: BP 114/58
[2025-06-19 15:50] VITALS: BP 112/60
--- NOTE | 2025-06-19 19:45 | NUR ---
SUMMARY DR. HO WAS GOING TO DISCHARGE TODAY BUT HELD PT DUE TO URINARY RETENTION. PT REQUIRED 2ND STRAIGHT CATH TODAY, WITH THE FIRST BEING YESTERDAY. Q6 BLADDER SCAN COMPLETED AND BOTH WERE GREATER THAN 400. PLACED LANE THIS EVENING. PT FOR[place]KIN WAS PULLED BACK TO PLACE LANE AND DID NOT WANT TO COMPLETELY RECOVER HEAD, MENTIONED TO CANVAS CUTTER TO ASSESS AND NOTIFY PROVIDER IF CONTINUES TO STAY BACK BEHIND HEAD. IV ANTIBIOTICS ADMINISTERED ORDERED. 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 OXYGEN SET UP AT BEDSIDE NEEDED.
[2025-06-19 19:50] VITALS: BP 119/53
[2025-06-20 03:09] VITALS: BP 121/66
--- NOTE | 2025-06-20 05:39 | NUR ---
SHIFT SUMMARY PATIENT ALERT AND ORIENTED X3, CONFUSE AT TIMES. PLEASANT AND COOPERATIVE WITH CARE. PATIENT YELLS AND DOES NOT USE CALL LIGHT. DENIES PAIN, SOB, AND CP. MEDICATED PER EMAR. REPOSITIONED THROUGHOUT SHIFT. BED LOCKED AND IN LOWEST POSITION. CALL LIGHT WITHIN REACH.
[2025-06-20 07:54] VITALS: BP 122/68
[2025-06-20] MEDS ORDERED: NYSTATIN15 GM TOP (11:50)
--- NOTE | 2025-06-20 11:57 | NUR ---
DR. VIC DE LOS SANTOS AT BEDSIDE, WITH ORDERS TO KEEP THE LANE CATHETER INSERTED FOR THE NEXT 1-2 WEEKS AND FOLLOW UP WITH OUTPATIENT UROLOGY. FAMILY AT BEDSIDE. 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
--- NOTE | 2025-06-20 13:23 | NUR ---
THIS NURSE CALLED [facility] TO ARRANGE TRANSPORT. [phone] BARIATRIC WHEELCHAIR, VIA LIFT WITH O2 PRN. REQUESTED THAT TRANSPORT RETURN TANK AND SHEET AFTER DROP OFF
--- NOTE | 2025-06-20 17:25 | NUR ---
LATE ENTRY: PT WAS DISCHARGED TO CARE OF [facility]. ALL PERSONAL BELONGINGS RETURNED. PT WAS TRANSFERRED FROM BED TO WHEELCHAIR USING A DESIRAE LIFT. OXYGEN SATS STABLE ON ROOM AIR. RN THEN FAXED DISCHARGE INSTRUCTIONS AND MEDICATION COPIES TO [facility], . THE LANE CATHETER REMAINED IN PLACE, PER DR. HO. RN SPOKE TO ELISE [employer] COLIN AT THE [facility], WHO STATED SHE WAS THE STAFF MEMBER AVAILABLE FOR REPORT. ELISE STATED THAT SHE WOULD NOTIFY THE ADMINISTRATION TO SCHEDULE A FOLLOW UP APPT WITH OUTPT UROLOGY [facility]. NO FURTHER QUESTIONS.
[2025-06-24] MEDS ORDERED: ALBU90OI INH (12:27)
[2025-06-24] MEDS ORDERED: NYSTOP15 GM TOP (12:28)
== END 2025-06-20 14:30 | disposition home or self-care (01) ==
LOC: ER 02:49 → MEDS 02:50 → ERHOLD 02:50 → EDBEDREQ 04:58 → EDBEDREQTM 05:08 → EDBEDREQ 05:10 → MEDS 05:48
PROVIDERS: Internal Medicine; Student in an Organized Health Care Education/Training Program; ADMIT Student in an Organized Health Care Education/Training Program
DX: J96.01 Acute respiratory failure with hypoxia (principal); J18.9 Pneumonia, unspecified organism; J44.9 Chronic obstructive pulmonary disease, unspecified; F03.90 Unspecified dementia, unspecified severity, without behavioral disturbance, psychotic disturbance, mood disturbance, and anxiety; N18.32 Chronic kidney disease, stage 3b; I12.9 Hypertensive chronic kidney disease with stage 1 through stage 4 chronic kidney disease, or unspecified chronic kidney disease; N17.9 Acute kidney failure, unspecified; N13.9 Obstructive and reflux uropathy, unspecified; Z87.891 Personal history of nicotine dependence
CPT/HCPCS: 36415; 51702; 71045; 80053; 83690; 83735; 83880; 84145; 85025; 85379; 87637; 93005; 93010; 94640; 94664; 94760; 94762; 96365; 96366; 96367; 96372; 99285-25; A9270; G0378; J0456; J0696; J1650; J7050